=== PATIENT | female | born 2000 | race Asian ===

== ENCOUNTER 2024-05-04 18:31 | Emergency (ER) | payer BC ==
[~2024-05-04] VITALS: Ht 160 cm; Wt 55.0 kg
[2024-05-04 18:37] VITALS: O2SAT 99
[2024-05-04] MEDS ORDERED: LORAZEPAM 1MG TABLET PO ONE (19:30)
[2024-05-04 21:24] LABS: EOSINOPHILS % 1.7 % (0.0-5.0); HEMATOCRIT. 37.4 % (36.0-48.0); HEMOGLOBIN. 12.6 g/dL (12.0-16.0); MEAN CORPUSCULAR HEMOGLOBIN 29.5 pg (28.0-32.0); MEAN CORPUSCULAR HGB CONC 33.7 g/dL (31.0-37.0); MEAN CORPUSCULAR VOLUME 87.7 fL (81.0-99.0); MEAN PLATELET VOLUME 7.4 fl (7.4-10.4); MONOCYTES % 6.9 % (2.0-8.0); NEUTROPHILS % 53.4 % (40.0-76.0); PLATELET 231 x1000/uL (130-400); RED BLOOD CELL COUNT 4.26 mill/uL (4.2-5.4); RED CELL DISTRIBUTION WIDTH 13.6 % (11.6-14.6); WHITE BLOOD COUNT 5.1 x1000/uL (4.5-11.0)
[2024-05-04 21:25] LABS: CHLORIDE 109 mEq/L (98-107); POTASSIUM 3.8 mEq/L (3.5-5.1); SODIUM 140 mEq/L (136-145)
[2024-05-04 21:26] LABS: CARBON DIOXIDE 25 mEq/L (21-32)
[2024-05-04 21:27] LABS: CALCIUM 9.2 mg/dL (8.7-10.4)
[2024-05-04 21:31] LABS: CREATININE 0.6 mg/dL (0.6-1.0); GLUCOSE 95 mg/dL (70-105)
[2024-05-04 21:32] LABS: ETHANOL BLOOD < 10 mg/dL (<10); UREA NITROGEN BLOOD 8 mg/dL (9-23)
[2024-05-04 22:46] LABS: CLARITY URINE CLEAR (CLEAR); COLOR URINE YELLOW (YELLOW); GLUCOSE URINE NEGATIVE (NEGATIVE); KETONES URINE NEGATIVE (NEGATIVE); LEUKOCYTE ESTERASE URINE NEGATIVE (NEGATIVE); NITRITE URINE NEGATIVE (NEGATIVE); OCCULT BLOOD URINE NEGATIVE (NEGATIVE); PH URINE 5.5 (4.5-8.0); PROTEIN URINE NEGATIVE (NEGATIVE); SPECIFIC GRAVITY URINE 1.019 (1.005-1.030); UROBILINOGEN URINE 0.2 E.U./dL (0.2-1.0)
[2024-05-04 22:53] LABS: *AMPHETAMINES SCREEN URINE NEGATIVE (NEGATIVE)
[2024-05-04 22:54] LABS: *BARBITURATES SCREEN URINE NEGATIVE (NEGATIVE); *BENZODIAZEPINES SCREEN URINE NEGATIVE (NEGATIVE); *COCAINE SCREEN URINE NEGATIVE (NEGATIVE); CANNABINOID URINE SCREEN NEGATIVE (NEGATIVE); ECSTASY MDMA SCREEN URINE NEGATIVE (NEGATIVE); METHADONE URINE SCREEN NEGATIVE (NEGATIVE); OPIATES URINE SCREEN NEGATIVE (NEGATIVE); PHENCYCLIDINE URINE SCREEN NEGATIVE (NEGATIVE)
[2024-05-04 22:56] LABS: HCG SCREEN NEGATIVE
[2024-05-05] MEDS: LORAZEPAM 1MG TABLET PO NR (00:41)
[2024-05-05 01:15] LABS: ALANINE AMINOTRANSFERASE 9 IU/L (10-49)
[2024-05-05 01:16] LABS: ACETAMINOPHEN 37 ug/mL (10-30); ALBUMIN 3.9 g/dL (3.2-4.8); ASPARTATE AMINOTRANSFERASE 19 IU/L (<34); BILIRUBIN DIRECT 0.2 mg/dL (<=3.0); BILIRUBIN TOTAL 0.6 mg/dL (0.1-1.0); PROTEIN TOTAL 6.7 g/dL (6.0-8.3)
[2024-05-05 09:17] LABS: ALANINE AMINOTRANSFERASE 9 IU/L (10-49); ASPARTATE AMINOTRANSFERASE 19 IU/L (<34)
[2024-05-05 09:18] LABS: ACETAMINOPHEN 8 ug/mL (10-30); BILIRUBIN DIRECT 0.2 mg/dL (<=3.0); BILIRUBIN TOTAL 0.8 mg/dL (0.1-1.0); PROTEIN TOTAL 6.8 g/dL (6.0-8.3)
[2024-05-06 12:21] VITALS: BP 115/69; PULSE 75; RESP 18; TEMP 36.66960; O2SAT 100
== END 2024-05-06 12:45 ==
LOC: ER 18:31
DX: T43.222A Poisoning by selective serotonin reuptake inhibitors, intentional self-harm, initial encounter (principal); T14.91XA Suicide attempt, initial encounter; F41.9 Anxiety disorder, unspecified; F19.90 Other psychoactive substance use, unspecified, uncomplicated; F32.9 Major depressive disorder, single episode, unspecified; Z20.822 Contact with and (suspected) exposure to COVID-19; X58.XXXA Exposure to other specified factors, initial encounter; Y93.89 Activity, other specified; Y92.89 Other specified places as the place of occurrence of the external cause; Y99.8 Other external cause status
CPT/HCPCS: 36415; 80048; 80076; 80305; 80307; 80320; 80329; 81003; 84703; 85025; 87426; 93005; 99285; G0480